=== PATIENT | male | born 1930 | race Caucasian/White ===

== ENCOUNTER 2016-07-01 08:55 | Emergency (ER) | payer OTHER ==
[~2016-07-01 08:55] MED LIST: ALEVE220 MG PO; ANTIBIOTIC PO; ARICEPT10 PO; ASABAYER PO; CARD120 PO; CLEOCIN300 MG PO; FISH-EPA1000 MG PO; FLOMAX4 PO; FLONASE NAS; FLORASTOR250 MG PO; ICAP; IRON; LOTE10 PO; MULTIPLE VIT PO; MULTIVITAMIN; NAMENXR28 PO; NORV25 PO; OCUVITE PO; OMNICEF300 PO; PLAVIX PO; PRILOSEC40 MG PO; PROAIR HFA; RAZADYNE ER16 MG PO; ROLAIDS PO; TUMSROLL PO; TYLENOL PM PO; ULTRAM50 PO; ZITHROMAX500 MG PO; ZOCOR20 PO; ZOCOR40 PO; ZOFRAN PO; [UNRECOGNIZED DRUG - OTHER] PO
[2016-07-01 09:26] LABS: BASOPHILS 0.2 %; BASOPHILS ABSOLUTE 0.02 10/3/uL (0.0-0.16); EOSINOPHILS ABSOLUTE 0.18 10/3/uL (0.0-0.53); ER CBC TAT 0 Hrs 07 Mins; IMMATURE GRANULOCYTES 0.3 %; IMMATURE GRANULOCYTES ABSOLUTE 0.03 10/3/uL (0.0-0.11); LYMPHOCYTES 11.3 %; LYMPHOCYTES ABSOLUTE 1.01 10/3/uL (0.67-4.30); MEAN CORPUSCULAR HEMOGLOB 29.9 pg (26.0-34.0); MEAN CORPUSCULAR VOLUME 90.3 fL (80-100); MEAN PLATELET VOLUME 10.7 fL (9.2-13.0); MONOCYTES 5.6 %; NEUTROPHILS 80.6 %; NEUTROPHILS ABSOLUTE 7.22 10/3/uL (2.02-8.40); PLATELET COUNT 189 10/3/uL (150-400); RBC DISTRIBUTION WIDTH 13.6 % (12.0-16.0); RED CELL COUNT 4.11 10/6/uL (4.7-6.1)
[2016-07-01 09:29] LABS: HEMATOCRIT 37.1 % (40.0-51.0); HEMOGLOBIN 12.3 g/dL (13.6-17.8); MANUAL DIFF NO %; MEAN CORPUS HGB CONC 33.2 g/dL (32.0-36.0)
[2016-07-01 09:44] LABS: A/G RATIO 0.8 (0.7-1.9); ALBUMIN 3.7 G/DL (3.5-5.0); CHLORIDE, SERUM 101 MMOL/L (96-112); CO2 (CARBON DIOXIDE) 28 MMOL/L (24-34); CREATININE 1.24 MG/DL (0.70-1.30); GFR AFRICAN AMERICAN 60 ML/MIN (>=60); GFR NON AFRICAN AMERICAN 52 ML/MIN (>=60); GLOBULIN 4.5 G/DL (2.5-4.1); GLUCOSE, SERUM 85 MG/DL (60-99); POTASSIUM, SERUM 4.4 MMOL/L (3.5-5.3); SGOT(AST) 82 U/L (5-40); SGPT(ALT) 45 U/L (5-65); SODIUM, SERUM 139 MMOL/L (135-148); TOTAL BILIRUBIN 0.4 MG/DL (0-1.2); TOTAL PROTEIN 8.2 G/DL (6.0-8.5)
[2016-07-01 09:45] LABS: ALKALINE PHOSPHATASE 89 U/L (45-117); BUN (BLOOD UREA NITROGEN) 27 MG/DL (6-23)
[2016-07-01 10:41] LABS: ASCORBIC ACID (UR NOT ORDER) 20 (NEG); BILIRUBIN, URINE NEGATIVE (NEG); ER URINALYSIS TAT 0 Hrs 13 Mins; KETONE, URINE TRACE MG/DL (NEG); LEUKOCYTE ESTERASE(NOT OR NEG (NEG); NITRITE (URINE) NEG (NEG); WBC (NOT ORDERED) (RFLEX) < 1 (0-5)
== END 2016-07-01 13:07 | disposition home or self-care (01) ==
LOC: ER 08:55
PROVIDERS: Emergency Medicine
DX: S41.151A Open bite of right upper arm, initial encounter (principal); L03.113 Cellulitis of right upper limb; I10 Essential (primary) hypertension; F03.90 Unspecified dementia, unspecified severity, without behavioral disturbance, psychotic disturbance, mood disturbance, and anxiety; Z95.1 Presence of aortocoronary bypass graft; Z79.82 Long term (current) use of aspirin; Z79.899 Other long term (current) drug therapy; W55.01XA Bitten by cat, initial encounter
CPT/HCPCS: 74176; 80053; 81001; 82150; 83605; 83690; 85025; 87040; 96374; 99285; A9270-GY; J1170; J2405